=== PATIENT | female | born 1970 | race African-American/Black ===

== ENCOUNTER 2017-02-28 20:42 | Inpatient (IN) | payer OTHER ==
[~2017-02-28] VITALS: Ht 157.5 cm; Wt 52.6 kg
--- NOTE | ~2017-02-28 | HC ---
[facility] [place] [address] CONSULTATION Name: BIBIANADEDRICK MARYCHUY Room #: 417-I ADM IN M.R.#: [id number] Admission: 02/28/17 Attend Phys: Gregory Farnsworth Discharge: Date of : 66 Report #: [id number] THIS REPORT FOR: //name// CC: Dr. Jonathan Lerma MD DATE OF SERVICE: 03/01/2017 HISTORY OF PRESENT ILLNESS: The patient is a 46-year-old female who reports on Thursday beginning to have abdominal pain, abdominal distention, nausea and vomiting and did report an episode of hematemesis, which she describes as coffee ground type emesis. No previous history of GI bleed. The patient apparently had a hysterectomy a year ago for fibroids and bleeding and she states had a bowel obstruction due to suture at that time and needed to be reexplored the following day. She has never had a previous bowel obstruction in the past. She was evaluated in the Emergency Room on the and a CT scan of the abdomen and pelvis was performed on 02/26/2017, which showed CT findings consistent with partial small bowel obstruction with transition zone in the mid abdomen. The patient apparently left AMA and then returned yesterday. A KUB last evening showed persistent dilation, small bowel loops similar to prior exam. KUB today after NG placement shows mildly dilated loops of small bowel with scattered air fluid levels. She reports her abdominal distention and abdominal pain has improved significantly. She has not had a bowel movement for 2 weeks apparently. She denies any flatus. In general, her weight has been stable. She denies any fevers or chills. No chest pain or shortness of breath currently. PAST MEDICAL HISTORY: Previous hysterectomy for fibroids, history of anemia, the patient was taken iron on a regular basis. ALLERGIES: No known drug allergies. SOCIAL HISTORY: She reports occasional tobacco and alcohol use. FAMILY HISTORY: Negative for colon cancer. REVIEW OF SYSTEMS: As per HPI. MEDICATIONS: At home is oral iron. PHYSICAL EXAMINATION: VITAL SIGNS: Temperature is 98.7, pulse 69, blood pressure is 109/65, respiratory rate is 16. GENERAL: She is alert and oriented x 3 in no acute distress. [address] [address] CONSULTATION Name: DEDRICK MCCARTY [facility] Room #: 417-I [facility] IN .R.#: [id number] Admission: 02/28/17 Attend Phys: Gregory Farnsworth Discharge: Date of : 66 Report #: [id number] HEENT: Sclerae nonicteric. Oropharynx clear. Nasogastric tube is in place with bilious type of clear material. No evidence of blood within the nasogastric aspirate. NECK: Supple without lymphadenopathy. CARDIOVASCULAR: Regular rate and rhythm. CHEST: Clear to auscultation. ABDOMEN: Soft. She is nondistended. Few bowel sounds were noted. EXTREMITIES: No cyanosis, clubbing or edema. LABORATORY DATA: Sodium 139, potassium 4.1, chloride 102, bicarb 31, BUN is 12, creatinine 0.6, AST 33, lipase 135, total bilirubin 0.8, calcium 9.5, alkaline phosphatase 48, ALT is 20, total protein 7.5, albumin 3.8. Lactic acid level 0.5 that was on the . WBC of 6.4, hemoglobin 14.1, MCV 86.0, platelet count is 225. ASSESSMENT AND PLAN: Small bowel obstruction, suspect due to adhesions. The patient has had a previous abdominal surgery including hysterectomy 1 year ago. Agree with current plan with nasogastric suction and serial KUBs. Dr. Lerma is to see the patient this afternoon. If no improvement, the patient may need surgery. We will continue to follow. Thank you for allowing me to participate in her care. <ELECTRONICALLY SIGNED> By: Anant Yeboah MD 03/04/17 0954 [id number] Anant Yeboah MD /nt
--- NOTE | ~2017-02-28 | HC ---
[facility] [place] [address] CONSULTATION Name: DEDRICK MCCARTY MARYCHUY Room #: 417-I ADM IN M.R.#: [id number] Admission: 02/28/17 Attend Phys: Gregory Farnsworth Discharge: Date of : 66 Report #: [id number] THIS REPORT FOR: //name// CC: Floresita Lerma MD DATE OF SERVICE: 03/01/2017 GENERAL SURGERY CONSULTATION ATTENDING PHYSICIAN: Gregory Farnsworth MD REASON FOR CONSULTATION: Abdominal pain, nausea and vomiting. HISTORY OF PRESENT ILLNESS: This is a 46-year-old, otherwise healthy female patient who was initially seen in the [facility] on 02/26/2017 with abdominal pain, nausea, vomiting and inability to pass a bowel movement for the week prior to her visit. She had vomited 10 times at the time of her visit to the Emergency Room. She underwent a CT of the abdomen and pelvis, which showed changes consistent with a partial small bowel obstruction with a transition zone in the mid abdomen just caudal to the iliac bifurcation. The patient left the hospital AMA and returned on 02/28/2017 with ongoing symptoms. She has tried stool softeners with no relief of her symptoms. She has a history of a previous bowel obstruction as a complication from hysterectomy performed in May 2015. She required take back to the operating room 5 days after her hysterectomy for what sounds like a segmental small bowel resection. She was hospitalized for nearly 1 week after her second operation. A nasogastric tube has been placed with drainage of feculent fluid. I have been asked to see the patient for further evaluation and treatment. She underwent an abdominal x-ray on 02/28/2017, which showed persistent dilatation of a few scattered small bowel loops with a slight decrease in the gaseous distention. Her white blood cell count was normal. PAST MEDICAL HISTORY: Denies. PAST SURGICAL HISTORY: Hysterectomy and probable segmental small bowel resection 5 days later. HOME MEDICATIONS: Multivitamins, Phenergan, ferrous sulfate and stool softeners. ALLERGIES: No known drug allergies. FAMILY HISTORY: Reviewed and noncontributory to this hospitalization. She has [facility] [address] [place] [address] CONSULTATION Name: DEDRICK MCCARTY [facility] Room #: 417-I ADM IN [facility]#: [id number] Admission: 02/28/17 Attend Phys: Gregory Farnsworth Discharge: Date of : 66 Report #: [id number] a sister with diabetes mellitus. SOCIAL HISTORY: The patient reports rare use of alcohol and tobacco. 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 She is currently unemployed. REVIEW OF SYSTEMS: As per history of present illness. In addition: GENERAL: The patient denies unintentional weight loss. Denies fever or chills. HEENT: Denies change in taste, vision, hearing or smell. RESPIRATORY: Denies shortness of breath, COPD or asthma. CARDIOVASCULAR: Denies chest pain or palpitations. GASTROINTESTINAL: As per history of present illness. Denies bright red blood per rectum. GENITOURINARY: Denies dysuria, urgency, increased urinary frequency or hematuria. MUSCULOSKELETAL: Denies myalgia, arthralgia or arthritis. NEUROLOGIC: Denies headaches, numbness or tingling. PSYCHIATRIC: Denies depression, anxiety or suicidal ideations. SKIN AND INTEGUMENTARY: Denies new skin lesions, rashes or moles. ENDOCRINE: Denies polydipsia, polyuria, heat or cold intolerance. HEMATOLOGIC: Denies easy bleeding or bruising, has a history of anemia. All other review of systems is negative. PHYSICAL EXAMINATION: VITAL SIGNS: Temperature 98.7, blood pressure 109/65, pulse 69, respirations 16. GENERAL: This is a well-developed, well-nourished, healthy appearing 46-year-old female patient, in no acute distress. HEENT: Atraumatic, normocephalic with moist mucosal membranes. Oropharynx is clear. She has no scleral icterus. A nasogastric tube is in place. NECK: Supple, no appreciable lymphadenopathy. Trachea is midline. CHEST: Clear bilaterally. No crackles or wheezes. CARDIOVASCULAR: Regular rate and rhythm, S1, S2. ABDOMEN: Soft, but tender to palpation diffusely. She has mild abdominal distention. There is no rebound or guarding. No palpable masses, no appreciable hernias. GENITOURINARY: Normal external female genitalia. EXTREMITIES: No clubbing, cyanosis or edema. NEUROLOGIC: Cranial nerves 2-12 grossly intact. PSYCHIATRIC: Normal mood and affect. SKIN AND INTEGUMENTARY: No acute inflammatory changes, rashes or lesions are present. LABORATORY DATA: CBC shows a white blood cell count of 6.4, hemoglobin 14.1, hematocrit 43.8 and platelets 225. Electrolytes showed a sodium of 139, potassium 4.1, chloride 102, CO2 of 31, BUN 12, creatinine 0.6 and glucose 85. [address] [address] CONSULTATION Name: DEDRICK MCCARTY Room #: 417-I ADM IN M.R.#: [id number] Admission: 02/28/17 Attend Phys: Gregory Farnsworth Discharge: Date of : 66 Report #: [id number] RADIOLOGIC STUDIES: Are as noted above. Followup KUB showed adequate placement of the nasogastric tube with ongoing dilated loops of small bowel with air fluid levels. IMPRESSION AND PLAN: This is a 46-year-old female patient with small bowel obstructive symptoms. We discussed the pathophysiology and natural history of small bowel obstructions, especially in light of her previous surgical history. We discussed treatment alternatives and surgical options. The patient would benefit from ongoing conservative treatment with bowel rest, nasogastric decompression and IV fluid resuscitation. I will plan to follow along with serial abdominal exams as well as labs and x-rays as necessary. Continue current care. I sincerely appreciate the opportunity to participate in the care of this patient and will leave further recommendations and orders in the electronic medical record as appropriate. <ELECTRONICALLY SIGNED> By: Jonathan Lerma MD, FACS 03/02/17 0822 1403 0127 Jonathan Lerma MD, FACS /nt
--- NOTE | ~2017-02-28 | EKG ---
[place] [address] [facility] [place] [address] ELECTROCARDIOGRAM REPORT Name: DEDRICK MCCARTY MARYCHUY Room #: 417-I ADM IN M.R.#: [id number] Admission: 02/28/17 Attend Phys: Gregory Farnsworth Discharge: Date of : 66 Report #: [id number] THIS REPORT FOR: //name// [facility] ED Test Date: 2017-02-28 Test Time: 22:03:56 Pat Name: DEDRICK MCCARTY Department: Room: [facility] Gender: F Bottle Feeder: NIKKI : 1970 Requested By: Tony Gillette Order Number: [id number] MD: Pardeep Guillen Measurements Intervals [place] Rate: 73 P: 79 MN: 148 QRS: 25 QRSD: 84 T: 59 QT: 431 QTc: 475 Interpretive Statements Sinus rhythm Right atrial enlargement Nonspecific ST segment abnormality Prolonged QT interval Compared to ECG 03/27/2012 15:01:34 Sinus rhythm has replaced ectopic atrial rhythm Electronically Signed On 03-01-2017 14:21:40 [employer] by Pardeep Guillen [email or web address] <ELECTRONICALLY SIGNED> By: Pardeep Guillen MD, [facility] 03/01/17 1421 02 02 Pardeep Guillen MD, [facility] /EPI
--- NOTE | ~2017-02-28 | O ---
[facility] [place] [address] OPERATIVE REPORT Name: DEDRICK MCCARTY MARYCHUY Room #: 417-I ADM IN M.R.#: [id number] Admission: 02/28/17 Attend Phys: Gregory Farnsworth Discharge: Date of : 66 Report #: [id number] THIS REPORT FOR: //name// CC: Benny Farnsworth DATE OF SERVICE: 03/04/2017 SURGEON: Jonathan Lerma MD COMMERCIAL SALES DIRECTOR: Roberto Salazar DO PREOPERATIVE DIAGNOSIS: Small-bowel obstruction. POSTOPERATIVE DIAGNOSIS: Small-bowel obstruction secondary to intra-abdominal adhesions. PROCEDURE: 1. Diagnostic laparoscopy. 2. Laparoscopic lysis of adhesions with release of small-bowel obstruction. ANESTHESIA: General endotracheal anesthesia and local anesthetic. ESTIMATED BLOOD LOSS: 5 mL. SPECIMEN: None. COMPLICATIONS: None appreciated. INDICATIONS FOR PROCEDURE: This is a 46-year-old female patient of Dr. Floresita Beltran who was initially seen in the [place] emergency room on 02/26/2017, with abdominal pain, nausea, vomiting and inability to pass a bowel movement. She had ongoing symptoms for a week before her visit. She also notes having vomited 10 times while in the emergency room. CT of the abdomen and pelvis showed changes consistent with a partial small-bowel obstruction with a transition zone seen in the mid abdomen, just caudal to the iliac bifurcation. The patient elected to leave the hospital AMA, returning on 02/28/2017, with ongoing symptoms. She had no relief of her symptoms with stool softeners. She does have a history of a previous small-bowel obstruction from a hysterectomy performed in May 2015. Five days after that operation, she required a take back for obstruction and is uncertain whether small-bowel was resected. The patient has been treated conservatively with nasogastric decompression and she showed some improvement with passage of bowel movements; however, upon clamping her nasogastric tube, she redeveloped the abdominal distention and had worsening signs of a bowel obstruction. She presents today for diagnostic laparoscopy [address] [address] OPERATIVE REPORT Name: DDERICK MCCARTY [facility] Room #: 417-I ADM IN .R.#: [id number] Admission: 02/28/17 Attend Phys: Gregory Farnsworth Discharge: Date of : 66 Report #: [id number] with release of her small-bowel obstruction. OPERATIVE FINDINGS: Upon entrance into the abdominal cavity, the more proximal bowel appeared to be dilated. There were adhesions from the bowel to the anterior abdominal wall; however, these did not appear to be causing the obstruction. The obstructed area was clearly seen with an adhesive band from the small-bowel to the mesentery over an area of bowel, which may have represented an internal hernia. This appeared to be the clear transition zone. After releasing this adhesion, the proximally distended bowel became less distended with passage of fluid and gas beyond the tightened area. There did not appear to be a stricture of the bowel in this area. No other significant intra-abdominal pathology was identified. The bowel was run from the ileocecal valve proximally to the ligament of Treitz with no other evidence for obstruction. A nasogastric tube was placed during the patient's operation as she had pulled the tube the night prior on her own. DESCRIPTION OF PROCEDURE IN DETAIL: After the risks, benefits and expectations the operation were discussed in detail with the patient, informed consent was obtained. The patient was identified in preoperative holding area. She was given IV antibiotics as documented in the chart in line with [facility] metrics. She was then taken to the operating room and she was placed in the supine position. SCDs were placed on the patient's bilateral lower extremities and pneumatic compression was initiated. The patient was then given IV sedation and she was intubated without incident. Her abdomen was prepped and draped in the standard sterile fashion. A time-out was performed to identify the correct patient and procedure. Local anesthetic was infiltrated into the skin and subcutaneous tissue in the left upper quadrant of the abdomen subcostally. A small transverse skin vianey was made and a 5-mm Visiport was placed intraperitoneally with a 0-degree angled laparoscope. Pneumoperitoneum was then achieved with insufflation of carbon dioxide to 15 mmHg. Additional 5-mm ports were placed in the left lateral abdomen and left lower quadrant of the abdomen under direct visualization after local anesthetic was infiltrated into the skin and subcutaneous tissue and appropriately sized transverse incisions were made. Operative findings are as noted above. The patient was placed in the Trendelenburg position. The small-bowel adhesions to the anterior abdominal wall were carefully taken down with appropriate traction and sharp dissection with no use of the ultrasonic dissector to avoid iatrogenic injury by thermal spread. After taking down the bowel, the bowel was carefully inspected and no serosal damage was present. The small-bowel was then run from the ileocecal valve proximally. There were interloop adhesions present in nonobstructed bowel distally. The adhesions were carefully taken down with appropriate traction and sharp dissection. As I was running the bowel more proximally, I encountered a tight adhesive band between the small-bowel mesentery over a loop of bowel. This was carefully divided with the ultrasonic dissector, well away from the bowel. After doing so, the [address] [address] OPERATIVE REPORT Name: DEDRICK MCCARTY Room #: 417-I ADM IN ..#: [id number] Admission: 02/28/17 Attend Phys: Gregory Todd Deborahdebbie Discharge: Date of : 66 Report #: [id number] small-bowel within the internal hernia was released. A clear transition zone was identified in this area and a picture was taken to document this. The small-bowel was then run more proximally. As I was doing so, the distended bowel became less distended as the gas and fluid moved more distally. The small-bowel was run up to the ligament of Treitz and back distally. No other significant findings were present. The free fluid within the abdominal cavity was suctioned. There was good hemostasis. No other significant pathology was seen. Interceed anti-adhesion sheets were then placed times 2 against the anterior abdominal wall in the area of her prior low transverse incisional scar to help prevent adhesion formation. The ports were removed and the abdominal cavity was desufflated. Interrupted subcuticular 4-0 Monocryl sutures and Dermabond were used to close the skin incisions. The patient tolerated the procedure well. She was awakened, extubated, and taken to recovery room in stable condition with no apparent intraoperative complications. <ELECTRONICALLY SIGNED> By: Jonathan Lerma MD, FACS 03/05/17 0914 1314 1434 Jonathan Lerma MD, FACS /nt
[2017-02-28 20:42] VITALS: BP 128/95
[~2017-02-28 20:42] MED LIST: AZITHROMYCIN 2250 MG PO; BACTRIM DS TAB1 EACH PO; BENADRYL25 MG PO; CHERACOL COUGH120 ML PO; CLEOCIN HCL150 MG PO; COLACE 100 MG100 MG PO; COLCRYS0.6 MG PO; CONGESTI EAC PO; DIPHENHIST50 MG PO; FLEXERIL PO; IBUPROFEN 600600 M1 PO; IBUPROFEN 800800 MG PO; INDOMETHACIN 2525 MG PO; IRON236 MG PO; IRON325 PO; MULTIVITAMINS1 EAC7 PO; NOHOMEMEDICATIONS; NORCO 5-325 TA1 EACH PO; PHENERGAN 25 MG25 M1 PO; TRAMADOL 50 MG50 MG PO; TYLENOL325 MG PO; ULTRAM 50MG TAB50 MG PO; UNICOMPLEX M TA1 TA1 PO; VITCB500GO PO
[2017-02-28] MEDS ORDERED: DULCOLAX STOOL100 MG PO (20:59)
[2017-02-28 21:51] LABS: ABSOLUTE NEUTROPHILS 4.9 thou/uL (1.4-8.2); BASOPHILS 0.2 % (0.0-2.0); EOSINOPHILS 0.8 % (0.0-3.0); HEMATOCRIT 49.5 % (37.0-47.0); LYMPHOCYTES 14.6 % (24.0-44.0); MCH 27.5 pg (26.0-34.0); MCHC 31.8 g/dL (28.0-37.0); MCV 86.3 fL (80.0-100.0); MONOCYTES 7.8 % (1.0-8.0); POLYS 76.6 % (36.0-66.0); RBC 5.73 mil/uL (4.20-5.00); RDW 13.4 % (10.5-14.5); WBC 6.3 thou/uL (4.0-11.0)
[2017-02-28 21:52] LABS: HEMOGLOBIN 15.7 gm/dL (12.0-15.0); MANUAL DIFF NO
[2017-02-28 21:53] LABS: ANION GAP 12 mmol/L (7-16); BUN 14 mg/dL (7-18); CALCIUM 9.7 mg/dL (8.5-10.1); CHLORIDE 96 mmol/L (98-107); CO2 28 mmol/L (21-32); CREATININE 0.6 mg/dL (0.6-1.0); GLUCOSE 98 mg/dL (74-106); POTASSIUM 3.9 mmol/L (3.5-5.1); SODIUM 136 mmol/L (136-145)
[2017-02-28 22:03] LABS: ALBUMIN 3.8 g/dL (3.4-5.0); ALKALINE PHOSPHATASE 48 U/L (46-116); SGOT 33 U/L (15-37); SGPT 20 U/L (30-65); TOTAL BILIRUBIN 0.8 mg/dL (<0.1-1.0); TOTAL PROTEIN 7.5 g/dL (6.4-8.2); TROPONIN-I < 0.04 ng/mL (<0.06)
[2017-02-28 22:10] LABS: PLATELET COUNT ND thou/uL (150-400)
[2017-02-28 23:26] VITALS: BP 128/95
[2017-02-28 23:57] VITALS: BP 118/83
[2017-03-01 00:15] VITALS: BP 141/95
[2017-03-01] MEDS ORDERED: IRON325 PO (00:37)
[2017-03-01 03:58] VITALS: BP 107/68
[2017-03-01 05:26] LABS: HEMATOCRIT 43.8 % (37.0-47.0); HEMOGLOBIN 14.1 gm/dL (12.0-15.0); MCH 27.6 pg (26.0-34.0); MCHC 32.1 g/dL (28.0-37.0); RBC 5.09 mil/uL (4.20-5.00); RDW 13.1 % (10.5-14.5); WBC 6.4 thou/uL (4.0-11.0)
[2017-03-01 05:34] LABS: CALCIUM 9.5 mg/dL (8.5-10.1); CREATININE 0.6 mg/dL (0.6-1.0); POTASSIUM 4.1 mmol/L (3.5-5.1)
[2017-03-01 08:00] VITALS: BP 109/65
[2017-03-01 16:26] VITALS: BP 96/75
[2017-03-01 20:00] VITALS: BP 112/72
[2017-03-02 05:00] VITALS: BP 109/62
[2017-03-02 08:24] VITALS: BP 118/72
[2017-03-02 16:24] VITALS: BP 146/102
[2017-03-02 16:46] VITALS: BP 133/86
[2017-03-02 20:00] VITALS: BP 139/92
[2017-03-03 04:30] VITALS: BP 122/82
[2017-03-03 07:55] VITALS: BP 99/71
[2017-03-03 16:39] VITALS: BP 128/68
[2017-03-03 20:00] VITALS: BP 115/53
[2017-03-04] VITALS (9 sets, daily range): BP systolic 93–144; BP diastolic 48–93
[2017-03-04 03:54] LABS: CALCIUM 8.8 mg/dL (8.5-10.1); CREATININE 0.6 mg/dL (0.6-1.0); POTASSIUM 3.4 mmol/L (3.5-5.1)
[2017-03-04 03:56] LABS: HEMATOCRIT 41.9 % (37.0-47.0); HEMOGLOBIN 13.3 gm/dL (12.0-15.0); MCH 27.6 pg (26.0-34.0); MCHC 31.8 g/dL (28.0-37.0); MCV 86.9 fL (80.0-100.0); PLATELET COUNT 224 thou/uL (150-400); RBC 4.82 mil/uL (4.20-5.00); RDW 12.9 % (10.5-14.5); WBC 4.5 thou/uL (4.0-11.0)
[2017-03-04 04:10] LABS: MANUAL DIFF YES
[2017-03-04 04:57] LABS: ABSOLUTE NEUTROPHILS 2.2 thou/uL (1.4-8.2); ATYPICAL LYMPHS 3 %; NUCLEATED RBCS 1 /100WBC; TOTAL CELL COUNT 100
[2017-03-04 04:58] LABS: PLATELET ESTIMATE NORMAL
[2017-03-05 04:07] VITALS: BP 111/58
[2017-03-05 06:23] LABS: HEMATOCRIT 41.4 % (37.0-47.0); HEMOGLOBIN 12.9 gm/dL (12.0-15.0); MCH 26.9 pg (26.0-34.0); MCHC 31.2 g/dL (28.0-37.0); MCV 86.1 fL (80.0-100.0); PLATELET COUNT 257 thou/uL (150-400); RBC 4.81 mil/uL (4.20-5.00); RDW 13.4 % (10.5-14.5); WBC 6.2 thou/uL (4.0-11.0)
[2017-03-05 06:24] LABS: MANUAL DIFF YES
[2017-03-05 06:32] LABS: CALCIUM 8.1 mg/dL (8.5-10.1); CREATININE 0.7 mg/dL (0.6-1.0); POTASSIUM 3.3 mmol/L (3.5-5.1)
[2017-03-05 07:34] VITALS: BP 106/58
[2017-03-05 08:04] LABS: ABSOLUTE NEUTROPHILS 4.8 thou/uL (1.4-8.2); ATYPICAL LYMPHS 1 %; TOTAL CELL COUNT 100
[2017-03-05 08:09] LABS: ANISOCYTOSIS SLIGHT
[2017-03-05 17:37] VITALS: BP 112/69
[2017-03-05 20:36] VITALS: BP 110/72
[2017-03-05 21:35] LABS: URINE BILIRUBIN NEGATIVE (Negative); URINE BLOOD TRACE (Negative); URINE COLOR YELLOW; URINE GLUCOSE-RANDOM* NEGATIVE (Negative); URINE KETONES 3+ (Negative); URINE LEUKOCYTES-REFLEX NEGATIVE (Negative); URINE PROTEIN (DIPSTICK) TRACE (Negative); URINE SPECIFIC GRAVITY >= 1.030 (1.003-1.035); URINE UROBILINOGEN 0.2 E.U./dl (0.2-1.0)
[2017-03-06 04:08] VITALS: BP 111/80
[2017-03-06 04:52] LABS: CALCIUM 8.3 mg/dL (8.5-10.1); CREATININE 0.6 mg/dL (0.6-1.0); POTASSIUM 3.9 mmol/L (3.5-5.1)
[2017-03-06 07:11] VITALS: BP 113/79
[2017-03-06 15:27] VITALS: BP 123/84
[2017-03-06 20:00] VITALS: BP 124/86
[2017-03-07 05:30] VITALS: BP 126/88
[2017-03-07 07:20] VITALS: BP 120/91
[2017-03-07 12:42] LABS: AMP/METHAMP Negative (Negative); BARBITURATES Negative (Negative); BENZODIAZEPINES Negative (Negative); COCAINE Negative (Negative); METHADONE Negative (Negative); OPIATES POSITIVE (Negative); PCP Negative (Negative); THC Negative (Negative)
[2017-03-07 16:10] VITALS: BP 140/102
[2017-03-07 17:00] VITALS: BP 128/98
[2017-03-07 18:15] VITALS: BP 139/101
[2017-03-07 19:18] VITALS: BP 112/77
[2017-03-08 03:49] LABS: HEMATOCRIT 38.4 % (37.0-47.0); HEMOGLOBIN 12.3 gm/dL (12.0-15.0); MCH 27.3 pg (26.0-34.0); MCV 85.2 fL (80.0-100.0); RBC 4.51 mil/uL (4.20-5.00); RDW 13.4 % (10.5-14.5); WBC 5.7 thou/uL (4.0-11.0)
[2017-03-08 04:03] LABS: ALBUMIN 2.5 g/dL (3.4-5.0); CALCIUM 8.5 mg/dL (8.5-10.1); CREATININE 0.4 mg/dL (0.6-1.0); POTASSIUM 3.6 mmol/L (3.5-5.1); TOTAL BILIRUBIN 0.2 mg/dL (<0.1-1.0)
[2017-03-08 04:19] VITALS: BP 130/90
[2017-03-08 08:53] VITALS: BP 127/94
[2017-03-08 16:20] VITALS: BP 112/75
[2017-03-08 19:00] VITALS: BP 114/82
[2017-03-09 04:12] VITALS: BP 109/75
[2017-03-09 05:00] LABS: HEMOGLOBIN 11.5 gm/dL (12.0-15.0); MCH 27.1 pg (26.0-34.0); MCV 84.6 fL (80.0-100.0); RBC 4.25 mil/uL (4.20-5.00); RDW 13.4 % (10.5-14.5); WBC 6.6 thou/uL (4.0-11.0)
[2017-03-09 05:17] LABS: ALBUMIN 2.3 g/dL (3.4-5.0); CALCIUM 8.8 mg/dL (8.5-10.1); CREATININE 0.4 mg/dL (0.6-1.0); POTASSIUM 3.4 mmol/L (3.5-5.1); TOTAL BILIRUBIN 0.1 mg/dL (<0.1-1.0); TOTAL PROTEIN 5.8 g/dL (6.4-8.2)
[2017-03-09 08:35] VITALS: BP 128/91
[2017-03-09] MEDS ORDERED: PHENERGAN 25 MG25 M1 PO (09:46)
[2017-03-09] MEDS ORDERED: SIMETHICON CHEW80 M1 PO (09:46)
[2017-03-09] MEDS ORDERED: TRAMADOL 50 MG50 MG PO (09:47)
[2017-03-09] MEDS ORDERED: BENADRYL25 MG PO (09:47)
[2017-03-09 10:00] VITALS: BP 128/91
== END 2017-03-09 10:55 | disposition home or self-care (01) | DRG 335 ==
LOC: ER 20:42 → 4E 22:46 → EROBS 22:46 → 4E 03-01 00:12 → ENTRNSPT 03-09 10:43 → EDTRNSPTSTS 03-09 10:45 → 4E 03-09 10:55
PROVIDERS: Emergency Medicine; Hospitalist; Nurse Practitioner Family
PROC: 0DN84ZZ Release Small Intestine, Percutaneous Endoscopic Approach (ICD-10-PCS; principal; 2017-03-04)
PROC: 0D9670Z Drainage of Stomach with Drainage Device, Via Natural or Artificial Opening (ICD-10-PCS; 2017-03-04)
PROC: 02HV33Z Insertion of Infusion Device into Superior Vena Cava, Percutaneous Approach (ICD-10-PCS; 2017-03-08)
DX: K56.51 Intestinal adhesions [bands], with partial obstruction (principal); E43 Unspecified severe protein-calorie malnutrition; Z90.710 Acquired absence of both cervix and uterus
CPT/HCPCS: 10084; 27000; 50010; 50101; 50249; 50386; 50455; 50525; 50555; 50962; 51489; 52265; 53307; 54118; 56462; 56525; 56526; 56771; 57092; 62110; 62900; 70005

== ENCOUNTER 2018-02-19 11:34 | Emergency (ER) | payer OTHER ==
[~2018-02-19] VITALS: Ht 157.5 cm; Wt 53.1 kg
[~2018-02-19 11:34] MED LIST changes: +DULCOLAX STOOL100 MG PO; +SIMETHICON CHEW80 M1 PO
[2018-02-19] MEDS ORDERED: VITAMIN B-12500 MCG PO (11:42)
[2018-02-19] MEDS ORDERED: CALCIUM CARBONAT1 GM PO (11:43)
[2018-02-19] MEDS ORDERED: VITAMINC500 PO (11:43)
[2018-02-19] MEDS ORDERED: NAPROSYN500 MG PO (11:58)
[2018-02-19] MEDS ORDERED: NORFLEX100 MG PO (11:58)
[2018-02-19 12:15] VITALS: BP 118/91
== END 2018-02-19 12:15 | disposition home or self-care (01) ==
LOC: ER 11:34
DX: S16.1XXA Strain of muscle, fascia and tendon at neck level, initial encounter (principal); M43.6 Torticollis; Z86.2 Personal history of diseases of the blood and blood-forming organs and certain disorders involving the immune mechanism; Z90.710 Acquired absence of both cervix and uterus; X58.XXXA Exposure to other specified factors, initial encounter; Y92.89 Other specified places as the place of occurrence of the external cause; Y93.89 Activity, other specified; Y99.8 Other external cause status

== ENCOUNTER 2018-07-01 21:52 | Inpatient (IN) | payer OTHER ==
[~2018-07-01] VITALS: Ht 167.6 cm; Wt 52.2 kg
[~2018-07-01 21:52] MED LIST changes: +CALCIUM CARBONAT1 GM PO; +NAPROSYN500 MG PO; +NORFLEX100 MG PO; +VITAMIN B-12500 MCG PO; +VITAMINC500 PO
[2018-07-01 21:53] VITALS: BP 145/87
[2018-07-01 22:27] LABS: ABSOLUTE NEUTROPHILS 8.6 thou/uL (1.4-8.2); BASOPHILS 0.5 % (0.0-2.0); EOSINOPHILS 1.5 % (0.0-3.0); HEMATOCRIT 44.6 % (37.0-47.0); LYMPHOCYTES 10.3 % (24.0-44.0); MCH 28.2 pg (26.0-34.0); MCHC 33.5 g/dL (28.0-37.0); MCV 84.1 fL (80.0-100.0); MONOCYTES 4.8 % (1.0-8.0); PLATELET COUNT 329 thou/uL (150-400); POLYS 82.9 % (36.0-66.0); RDW 13.9 % (10.5-14.5); WBC 10.4 thou/uL (4.0-11.0)
[2018-07-01 22:37] LABS: CALCIUM 10.4 mg/dL (8.5-10.1); CREATININE 0.7 mg/dL (0.6-1.0); POTASSIUM 3.5 mmol/L (3.5-5.1)
[2018-07-01 22:42] LABS: ALBUMIN 4.8 g/dL (3.4-5.0); TOTAL BILIRUBIN 0.4 mg/dL (<0.1-1.0); TOTAL PROTEIN 9.3 g/dL (6.4-8.2)
[2018-07-02 03:29] VITALS: BP 127/80
[2018-07-02 03:44] VITALS: BP 128/81
--- NOTE | 2018-07-02 05:35 | NUR ---
PT REFUSING ALL MORNING CARE INCLUDING MEDICINE, VITAL SIGSN AND LABS. PT REFUSED TO LET NURSE AND AID CHANGE BREIF OR LOOK AT BOTTOM.
[2018-07-02 06:38] LABS: HEMATOCRIT 47.9 % (37.0-47.0); HEMOGLOBIN 15.4 gm/dL (12.0-15.0); MCH 27.6 pg (26.0-34.0); MCHC 32.1 g/dL (28.0-37.0); MCV 86.1 fL (80.0-100.0); RBC 5.56 mil/uL (4.20-5.00); RDW 14.3 % (10.5-14.5); WBC 10.2 thou/uL (4.0-11.0)
[2018-07-02 06:48] LABS: PROTIME 10.9 Seconds (9.3-11.4)
[2018-07-02 06:49] LABS: CALCIUM 10.1 mg/dL (8.5-10.1); CREATININE 0.6 mg/dL (0.6-1.0); POTASSIUM 3.7 mmol/L (3.5-5.1)
--- NOTE | 2018-07-02 08:06 | NUR ---
PT ARRIVED ON UNIT APRROXIMATELY 0400. PT ALERT AND ORIENTED, LETHARGIC BUT EASILY AROUSABLE. PT COMPLAINS OF N/V AND ABDOMINAL PAIN. NG TUBE ATTACHED TO SUCTION. ORDERS ACKNOWLEDGED AND IMPLMENTED. IV DRESSING C/D/I, NO SIGNS OF INFILTRATION. PT HAD ONE EPSIODE OF VOMITING THIS AM. REPORT PASSED ON TO AM NURSE.
--- NOTE | 2018-07-02 09:41 | NUR ---
Assess due to borderline low BMI 18.6. Admitted today with small bowel obstruction. NGT present, has had abdominal pain and emesis so did not disturb for questions today. Wt hx shows gain about 6 lb from 2017. Surgical consulted. Low nutrition risk for now, continue to follow as appropriate.
[2018-07-02 09:56] VITALS: BP 136/71
--- NOTE | 2018-07-02 11:14 | NUR ---
ASSUMED PT CARE AT 0700. ASSESSMENT COMPLETED AND IS CHARTED. VSS. PT VERY LETHARGIC LIKELY DUE TO MEDS GIVEN IN ER. PT AROUSES TO NAME AND IS ALERT/ORIENTED TO PERSON AND PLACE. PT DENIES PAIN AND STATES NAUSEA IS BETTER. NG TUBE TO LOW SUCTION IN LEFT NARE. IRRIGATED AND AUSCULTATED FOR PLACEMENT. WILL CONTINUE WITH CURRENT CARE.
--- NOTE | 2018-07-02 12:27 | NUR ---
PT ADMITTED RELATED TO SBO. CM REVIEWED CHART AND SPOKE WITH CARE TEAM. CM MET WITH PT AT BEDSIDE THIS DAY. PT IS A&O X4. BUT SPEAKS VERY QUIETLY. 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 WE HAVE HER LISTED PATIENT PAY BUT SHE INDICATED SHE HAS [employer]. CM NOTIFIED UR NURSE. PT INDICATED HER PCP IS NAINA. PT STATED SHE PLANS TO RETURN HOME ONCE MEDICALLY STABLE. CM TO FOLLOW INDICATED WITH DC PLANNING.
--- NOTE | 2018-07-02 15:10 | NUR ---
PT DOING BETTER THIS AFTERNOON. WAKING UP, LESS LETHARGIC THAN THIS MONRING. PT GOT UP TO COMMODE WITH STANDBY ASSIST. HAVING DIARRHEA. PT ALSO GAVE SELF A SPONGE BATH AND PERFORMED ORAL CARE. PT STILL REPORTS PAIN AND NAUSEA ARE UNDER CONTROL.
--- NOTE | 2018-07-02 15:33 | NUR ---
TRANSFERRED PT TO SENIOR SUITES IN STABLE CONDITION. REPORT CALLED TO NANY BAR.
[2018-07-02 19:06] VITALS: BP 133/85
--- NOTE | 2018-07-02 19:29 | NUR ---
PATIENT TRANSFERRED FROM ROOM #424 TO ROOM #221. IV FLUIDS RESUMED. NG SUCTION CANISTER EMPTIED AND HOOKED UP TO WALL SUCTION. PATIENT SETTLED WITH CALL LIGHT WITHIN REACH.
--- NOTE | 2018-07-03 05:33 | NUR ---
PATIENT ALERT AND ORIENTED X4. UP TO BSC W/O ASSISTANCE. NG TUBE TO LIS WITH GREENISH/BROWN LIQUID. IVF INFUSING W/O COMPLICATION. PAIN MEDICATION AND NAUSEA MEDICATION GIVEN X1 AT TIME OF NOTE. LIQUID STOOL X1. PATIENT REMAINS NPO, HOWEVER, SHE QUESTIONS THE IMPORTANCE AND ASKS FOR ICE CHIPS. THIS NURSE HAS EXPLAINED HER SITUATION A FEW TIMES TO HER. C/O WANTING NG TUBE REMOVED AND A SORE THROAT, ALSO EXPLAINED THE NEED. ASLEEP AT TIME OF NOTE. WILL MONITOR.
--- NOTE | 2018-07-03 06:30 | NUR ---
THIS NURSE RESPONDED TO BED ALARM. NOTED THAT PATIENT WAS STANDING IN FRONT OF THE BSC UPON ENTERING ROOM. RE-EDUCATED PATIENT THAT SHE NEEDED TO UTILIZE HER CALL LIGHT PRIOR TO GETTING UP INDEPENDENTLY. PT INFORMED THIS NURSE THAT "SHE WAS NOT A FALL RISK AND WOULD NOT BE UTILIZING HER CALL LIGHT WHEN SHE GETS OUT OF THE BED". PT'S STATEMENT PASSED ON TO HER NURSE AND WILL BE PASSED ON TO ONCOMING SHIFT.
[2018-07-03 07:45] VITALS: BP 110/73
--- NOTE | 2018-07-03 10:31 | NUR ---
PATIENT CARE WAS ASSUMED AT 0715.PATIENT IS ALERT AND ORIENTED X4.PT HAS PAIN IN ABD /10, WILL GIVE PAIN MEDS.PT HAS IV INTACT WITH FLUIDS INFUSING.NG IS IN PLACE ON INTERMITING SUCTION.PT IS NPO WAS GIVEN MOUTH SWAPS.ORAL CARE WAS DONE,ALONG WITH SMALL BED BATH.PT IS VERY UPSET ABOUT NO EATING OR DRINKING ANYTHING.PT IS NO FALL RISK BUT WAS TOLD TO ASK FOR HELP BEFORE GETTING UP DUE TO HAVING A LOT OF LINES/TUBES.CALL LIGHT,PHONE, AND PERSONAL BELONGINGS ARE WITHIN REACH.
[2018-07-03 19:37] VITALS: BP 133/90
[2018-07-04 02:08] LABS: URINE BILIRUBIN NEGATIVE (Negative); URINE BLOOD TRACE (Negative); URINE CLARITY CLEAR; URINE COLOR YELLOW; URINE GLUCOSE-RANDOM* NEGATIVE (Negative); URINE KETONES TRACE (Negative); URINE LEUKOCYTES NEGATIVE (Negative); URINE NITRITE NEGATIVE (Negative); URINE PROTEIN (DIPSTICK) NEGATIVE (Negative); URINE SPECIFIC GRAVITY >= 1.030 (1.005-1.035); URINE UROBILINOGEN 0.2 E.U./dl (0.2-1.0)
--- NOTE | 2018-07-04 04:26 | NUR ---
PATIENT ALERT AND ORIENTED X4. UP TO BSC WITHOUT ASSISTANCE. IVF INFUSING W/O COMPLICATION. MEDICATED FOR ABDOMINAL PAIN AND NAUSEA X2 DURING THE NIGHT. PATIENT TOLERATING ICE CHIPS AND SIPS OF WATER WITHOUT EMESIS. HOWEVER, CONSTANTLY ASKING FOR ITEMS SHE CANNOT DIGEST. SON AT BEDSIDE THROUGHOUT THE NIGHT. URINE SAMPLE SENT TO LAB. PATIENT IS IMPATIENT WITH CARE AND NEEDS AN EXPLAINATION OF WHAT IS IMPORTANT AND WHEN. NG REMAINS IN PLACE WITH GREEN/BROWN DRAINAGE. WILL MONITOR.
--- NOTE | 2018-07-04 06:38 | NUR ---
PATIENT TOLD THIS NURSE THAT IF SHE DOES NOT GET SOMETHING MORE TO EAT THAT SHE WILL BE TAKING HERSELF OUT OF THIS HOSPITAL. THIS NURSE STATED THAT SHE SHOULD SPEAK WITH THE DOCTOR MAKING ROUNDS TODAY BEFORE SHE MAKES THAT DECISION. PATIENT IS VERY ANXIOUS THIS MORNING AND STATES SHE IS "STARVING".
[2018-07-04 08:00] VITALS: BP 107/63
--- NOTE | 2018-07-04 10:34 | NUR ---
PATIENT CARE WAS ASSUMED AT 0715.PATIENT IS ALERT AND ORIENTED X4.PATIENT HAS NG TUBE INTACT THIS MORNING.DOCTOR GAVE ORDERS FOR NG TO COME OUT.IV IS INTACT WITH FLUIDS RUNNING.PT HAS PAIN 4/10 WILL GIVE PAIN MEDS WITH MORNING MED PASS.PT STATED THAT SHE IS VERY HUNGRY AND WANTS SOMETHING TO EAT.AFTER NG IS TAKEN OUT PT'S DIET CAN BE ADVANCED TOLERATED.PT WAS ALREADY EATING WITH NG TUBE, IN PLACE,DOCTOR IS AWARE.SON IS AT BEDSIDE.PT HAS CALL LIGHT, PHONE, AND PERSONAL BELONGINGS WITHIN REACH.
[2018-07-04 12:10] LABS: % SATURATION 21 % (20-39); IRON 79 ug/dL (50-170); TIBC 379 ug/dL (250-450)
[2018-07-04 13:03] LABS: FOLIC ACID 18.5 ng/mL (8.6-58.9)
[2018-07-04 20:37] VITALS: BP 117/81
--- NOTE | 2018-07-05 05:26 | NUR ---
PATIENT ALERT AND ORIENTED X4. C/O PAIN IN ABD, MED GIVEN WITH NO RESULTS. PATIENT HAD EATEN GUILLERMO CRACKERS, ICE CREAM, [place] ICE, CHICKEN AND DRANK A CARTON OF MILK. GAVE ZOFRAN WITH FAIR RESULTS. PATIENT UP AD RICK. SLEPT LITTLE THIS SHIFT.
[2018-07-05 08:01] VITALS: BP 111/72
[2018-07-05 15:05] VITALS: BP 111/72
--- NOTE | 2018-07-05 15:31 | NUR ---
DISCHARGE NOTE: SW reviewed chart and spoke with nursing and attending physician. Pt was transferred to [facility] from and is medically stable for discharge home today. SW notified that pt will need transportation home. SW met with pt and her son at bedside to discuss transportation home. SW confirmed pt's home address. Voucher provided to pt's nurse. Pt came out of her room, stating her son will provide transportation home. Pt had questions for SW regarding her future employment with regards to her current pending felony charges. Pt states she has to complete one year of treatment in order for that charge to be removed from her record. No additional SW needs identified at this time, but is available to assist should needs arise.
--- NOTE | 2018-07-05 15:45 | NUR ---
ASSUMED CARE OF PATIENT AT 0715, PATIENT ALERT AND ORIENTED X 4. UP AD RICK. C/O PAIN WITH ABDOMEN THIS AM, FENTANYL 50 MCG IV GUIVEN, WITH COMPLETE RELIEF. PATIENT'S RIGHT WRIST IV NOT FLUSHING, NOTIFIED IV TEAM DUE TO PATIENT REQUEST SHE IS A HARD STICK. MELISA/IV TEAM CAME PLACED IV RIGHT UPPER ARM. DR PINEDA HERE WILL DISCHARGE PATIENT TO HOME WITH SELF CARE. ALL DISCHARGE PAPERWORK AND ALL PERSONAL BELONGINGS SENT WITH THE PATIENT. MACKENZIE PRESENT FOR DISCHARGE.
== END 2018-07-05 15:57 | disposition home or self-care (01) | DRG 390 ==
LOC: ER 21:52 → EROBS 07-02 03:06 → SICU 07-02 03:06 → 4E 07-02 04:03 → SICU 07-02 16:00 → ENTRNSPT 07-05 15:33 → EDTRNSPTSTS 07-05 15:36 → SICU 07-05 15:57
PROVIDERS: Emergency Medicine; Nurse Practitioner Family; ADMIT Hospitalist
PROC: 0D9670Z Drainage of Stomach with Drainage Device, Via Natural or Artificial Opening (ICD-10-PCS; principal; 2018-07-02)
DX: K56.699 Other intestinal obstruction unspecified as to partial versus complete obstruction (principal); E86.0 Dehydration; F41.9 Anxiety disorder, unspecified; Z90.710 Acquired absence of both cervix and uterus; Z79.899 Other long term (current) drug therapy
CPT/HCPCS: 15002

== ENCOUNTER 2019-06-12 09:55 | Emergency (ER) | payer OTHER ==
[~2019-06-12] VITALS: Ht 160 cm; Wt 56.7 kg
[2019-06-12 10:43] LABS: ABSOLUTE NEUTROPHILS 3.3 thou/uL (1.4-8.2); BASOPHILS 0.9 % (0.0-2.0); EOSINOPHILS 3.5 % (0.0-3.0); HEMATOCRIT 38.9 % (37.0-47.0); HEMOGLOBIN 12.5 gm/dL (12.0-15.0); LYMPHOCYTES 38.2 % (24.0-44.0); MCH 27.5 pg (26.0-34.0); MCHC 32.1 g/dL (28.0-37.0); MCV 85.7 fL (80.0-100.0); MONOCYTES 9.7 % (1.0-8.0); PLATELET COUNT 329 thou/uL (150-400); POLYS 47.7 % (36.0-66.0); RBC 4.54 mil/uL (4.20-5.00); RDW 13.9 % (10.5-14.5); WBC 6.8 thou/uL (4.0-11.0)
[2019-06-12 11:00] LABS: ANION GAP 9 mmol/L (7-16); BUN 13 mg/dL (7-18); CHLORIDE 103 mmol/L (98-107); CO2 27 mmol/L (21-32); CREATININE 0.9 mg/dL (0.6-1.0); GLUCOSE 117 mg/dL (74-106); POTASSIUM 3.6 mmol/L (3.5-5.1); SODIUM 139 mmol/L (136-145)
[2019-06-12 11:04] LABS: ALBUMIN 3.8 g/dL (3.4-5.0); DIRECT BILIRUBIN < 0.1 mg/dL (<0.1-0.2); LIPASE 148 U/L (73-393); SGOT 17 U/L (15-37); SGPT 15 U/L (30-65); TOTAL BILIRUBIN 0.1 mg/dL (<0.1-1.0); TOTAL PROTEIN 7.4 g/dL (6.4-8.2)
[2019-06-12] MEDS ORDERED: NORCO 5-325 TA1 EAC1 PO (11:52)
[2019-06-12 12:12] VITALS: BP 130/85
== END 2019-06-12 12:16 | disposition home or self-care (01) ==
LOC: ER 09:55
PROVIDERS: Emergency Medicine
DX: R10.32 Left lower quadrant pain (principal); R10.31 Right lower quadrant pain; Z90.710 Acquired absence of both cervix and uterus; Z79.899 Other long term (current) drug therapy

== ENCOUNTER 2019-09-14 15:56 | Emergency (ER) | payer OTHER ==
[~2019-09-14] VITALS: Ht 157.5 cm; Wt 63.5 kg
[~2019-09-14 15:56] MED LIST changes: +NORCO 5-325 TA1 EAC1 PO
[2019-09-14] MEDS ORDERED: KEFLEX500 M1 PO (16:30)
[2019-09-14 16:40] VITALS: BP 120/75
== END 2019-09-14 16:40 | disposition home or self-care (01) ==
LOC: ER 15:56
DX: M54.6 Pain in thoracic spine (principal); Z48.01 Encounter for change or removal of surgical wound dressing; Z90.711 Acquired absence of uterus with remaining cervical stump